=== PATIENT | female | born 1970 | race Caucasian/White ===

== ENCOUNTER 2022-01-14 17:40 | Inpatient (IN) | payer BC ==
[~2022-01-14] VITALS: Ht 167.6 cm; Wt 61.3 kg
[~2022-01-14 17:40] MED LIST: CALC-838 PO; LAMO200T2 PO; ZOLP5TAB2 PO
[2022-01-14] MEDS ORDERED: SERT100T12 PO (17:55)
[2022-01-14] MEDS ORDERED: GABA300C PO (17:55)
--- NOTE | 2022-01-14 17:55 | NUR ---
BOO RA39 "Was walking- felt like she was going to have a seizure- sat on pavement. Bystanders report focal seizure. Given 5Versed on arrival BS- 156. PLACE ON BED, BREATHING SPONTANEOUSLY SATURATING AT 98% RA, RESPONDING TO VERBAL STIMULI- IM TIRED VERBALIZED.
--- NOTE | 2022-01-14 17:56 | NUR ---
AT BED SIDE
[2022-01-14] MEDS ORDERED: LEVETIRACETAM (500MG) 500 MG in IV NS 0.9% 100 ML IV SCH (18:00)
[2022-01-14] MEDS ORDERED: IV NS 0.9% 1,000 ML BAG IV ONE (18:00)
--- NOTE | 2022-01-14 18:10 | NUR ---
X-RAY TECH AT BED SIDE
--- NOTE | 2022-01-14 18:25 | NUR ---
SPECIAL MAKEUP FX ARTIST INSTRUCTOR. AT BED SIDE FOR BLOOD WORKS
[2022-01-14] MEDS ORDERED: MORPHINE SULFATE INJ 4 MG/ML DISP.SYRIN ONE (18:59)
[2022-01-14] MEDS ORDERED: MORPHINE SULFATE INJ 2 MG/ML DISP.SYRIN IV ONE (19:00)
--- NOTE | 2022-01-14 19:11 | NUR ---
pt to ct via [facility]
--- NOTE | 2022-01-14 19:15 | NUR ---
PATIENT WENT FOR CT HEAD VIA [facility]
[2022-01-14 19:16] LABS: CALCIUM, SERUM 8.5 mg/dL (8.5-10.1); CARBON DIOXIDE 29 mmol/L (21-32); CHLORIDE 104 mmol/L (98-107); CREATININE 0.9 mg/dL (0.6-1.3); GLUCOSE 119 mg/dL (74-106); POTASSIUM 3.7 mmol/L (3.5-5.1); SODIUM SERUM 140 mmol/L (136-145); UREA NITROGEN, BLOOD 23 mg/dL (7-18)
[2022-01-14 19:23] LABS: ALANINE AMINOTRANSFERASE 25 U/L (12-78); ALBUMIN 3.7 g/dL (3.4-5.0); ALKALINE PHOSPHATASE 101 U/L (46-116); ASPARTATE AMINOTRANSFERASE 18 U/L (15-37); BILIRUBIN,DIRECT 0.1 mg/dL (0.0-0.2); BILIRUBIN,TOTAL 0.2 mg/dL (0.2-1.0); TOTAL PROTEIN, SERUM 7.3 g/dL (6.4-8.2)
[2022-01-14 19:24] LABS: ALCOHOL, BLOOD < 3 mg/dL (0-0)
[2022-01-14 20:15] LABS: BASOPHILS % (AUTO) 0.3 % (0.0-2.0); EOSINOPHILS % (AUTO) 2.3 % (0.0-6.0); HEMATOCRIT 36 % (33-45); HEMOGLOBIN 11.7 g/dL (11.5-14.8); LYMPHOCYTES # (AUTO) 1.3 K/uL (0.8-4.8); LYMPHOCYTES % (AUTO) 15.5 % (20.0-44.0); MEAN CORPUSCULAR HGB CONC 33 g/dl (31.0-36.0); MEAN CORPUSCULAR VOLUME 85 fL (82-100); MONOCYTES # (AUTO) 0.5 K/uL (0.1-1.30); MONOCYTES % (AUTO) 5.8 % (2.0-12.0); NEUTROPHILS # (AUTO) 6.3 K/uL (1.8-8.9); NEUTROPHILS % (AUTO) 76.1 % (43.0-81.0); PLATELET COUNT (AUTO) 322 K/uL (150-450); RED BLOOD CELL COUNT(AUTO) 4.18 MIL/uL (4.0-5.2); WHITE BLOOD COUNT (AUTO) 8.2 K/uL (4.3-11.0)
--- NOTE | 2022-01-14 20:27 | NUR ---
INSERTED F/C 16FR PATENT AND INTACT. URINE AND COVID ANTIGEN SWAB COLLECTED AND SENT TO LAB
--- NOTE | 2022-01-14 20:30 | NUR ---
EPIC PAGED PER DR THOMPSON.
[2022-01-14] MEDS ORDERED: ACETAMINOPHEN 325 MG TABLET PO PRN (21:00)
[2022-01-14] MEDS ORDERED: Z GUARD REMEDY 4 OZ OINT TP PRN (21:00)
[2022-01-14] MEDS ORDERED: ONDANSETRON HCL/PF 4 MG/2 ML VIAL IVP PRN (21:00)
[2022-01-14] MEDS ORDERED: LORAZEPAM INJ 2 MG/ML VIAL IV PRN (21:00)
[2022-01-14] MEDS ORDERED: LEVETIRACETAM (500MG) 500 MG in IV NS 0.9% 100 ML IV ONE (21:00)
--- NOTE | 2022-01-14 22:47 | NUR ---
tele [phone]
--- NOTE | 2022-01-14 22:53 | NUR ---
REPORT GIVEN TO WILLIE Richardson RN FOR NINA.
--- NOTE | 2022-01-14 23:00 | NUR ---
PT SEEN BY HOSPITALIST HERNANDEZ LEES
[2022-01-14 23:30] VITALS: BP 121/69
--- NOTE | 2022-01-14 23:32 | NUR ---
TREAD CUTTERELECTRONIC WARFARE OPERATOR NOTES ADMITTED THIS PATIENT FROM ER VIA [facility]. PATIENT IS AWAKE, ALERT AND ORIENTED X4. BREATHING IS EVEN AND NONLABORED. WITH OXYGEN INHALATION AT 2LPM VIA NASAL CANNULA; TOLERATING WELL. WITH IV ACCESS ON RIGHT HAND GAUGE #20; PATENT, INTACT AND SALINE LOCKED. VS TAKEN AND RECORDED FOLLOWS: TEMP-97.7, IL-80, RR-20, BP-112/69 MMHG, PULSE OXIMETER O2 SATURATION 97%. SKIN ASSESSMENT DONE; PICTURES TAKEN AND PLACED ON CHART. WITH COTO CATHETER ATTACHED TO UROBAG DRAINING TO YELLOW URINE OUTPUT. ORIENTATION TO ROOM AND UNIT DONE. ABLE TO MAKE NEEDS KNOWN. COMPLAINED OF PAIN ON HER RIGHT HIP WITH A SCALE 0F 9/10. SAFETY MEASURES IMPLEMENTED: PADDED SIDE RAILS, CALL LIGHT AND TABLE WITHIN EASY REACH, SIDE RAILS UP X2, BED IN LOWEST LOCKED POSITION. WILL CONTINUE TO MONITOR
--- NOTE | 2022-01-14 23:41 | NUR ---
PT TRANSFERRED TO 3W VIA ACLS PROTOCOL IN STABLE CONDITION. ALL BELONGINGS WITH PT. PT TOLERATED TRANSFER WELL.
[2022-01-15] MEDS: MORPHINE SULFATE INJ 2 MG/ML DISP.SYRIN IV PRN ×3 (00:02→12:14)
--- NOTE | 2022-01-15 00:05 | NUR ---
CLEARANCE COORDINATOR NOTES PRN MORPHINE 0.5 ML GIVEN VIA IV ORDERED.
[2022-01-15] MEDS: IV D5/0.45 NACL 1,000 ML IV PRN (00:32)
[2022-01-15 02:56] LABS: BILIRUBIN,URINE NEGATIVE (NEGATIVE); COLOR,URINE YELLOW (YELLOW); LEUKOCYTE ESTERASE ,URINE TRACE (NEGATIVE); NITRITE, URINE POSITIVE (NEGATIVE); PH,URINE 6.5 (5.0-8.0); PROTEIN,URINE NEGATIVE (NEGATIVE); UGLUCOSE NEGATIVE (NEGATIVE); UROBILINOGEN,URINE 0.2 EU/dL (0.2)
[2022-01-15 04:00] VITALS: BP 132/72
[2022-01-15 04:15] VITALS: BP 132/72
[2022-01-15] MEDS: LEVETIRACETAM (500MG) 500 MG in IV NS 0.9% 100 ML IV SCH ×2 (06:00→19:50)
[2022-01-15 06:22] LABS: BASOPHILS % (AUTO) 0.1 % (0.0-2.0); EOSINOPHILS % (AUTO) 0.1 % (0.0-6.0); HEMATOCRIT 34 % (33-45); HEMOGLOBIN 11.5 g/dL (11.5-14.8); LYMPHOCYTES # (AUTO) 1.1 K/uL (0.8-4.8); LYMPHOCYTES % (AUTO) 11.1 % (20.0-44.0); MEAN CORPUSCULAR HGB CONC 34 g/dl (31.0-36.0); MEAN CORPUSCULAR VOLUME 83 fL (82-100); MONOCYTES # (AUTO) 0.7 K/uL (0.1-1.30); MONOCYTES % (AUTO) 6.7 % (2.0-12.0); NEUTROPHILS # (AUTO) 8.3 K/uL (1.8-8.9); PLATELET COUNT (AUTO) 306 K/uL (150-450); RED BLOOD CELL COUNT(AUTO) 4.11 MIL/uL (4.0-5.2); WHITE BLOOD COUNT (AUTO) 10.2 K/uL (4.3-11.0)
[2022-01-15 06:52] LABS: CREATININE 0.6 mg/dL (0.6-1.3); MAGNESIUM 2.2 mg/dL (1.8-2.4); PHOSPHORUS 2.4 mg/dL (2.5-4.9); POTASSIUM 3.8 mmol/L (3.5-5.1)
--- NOTE | 2022-01-15 07:00 | NUR ---
BILL OF LADING CLERK CLOSING NOTES PATIENT IN BED; AWAKE, ALERT AND ORIENTED X4. BREATHING EVENLY AND NONLABORED. IN NO ACUTE DISTRESS NOTED. ON ROOM AIR; TOLERATING WELL. NEEDS ATTENDED TO. SAFETY PRECAUTIONS IN PLACED. ENDORSED TO MORNING SHIFT FOR CONTINUITY OF CARE.
[2022-01-15] MEDS ORDERED: GABA300C PO (07:18)
--- NOTE | 2022-01-15 07:20 | NUR ---
WIND TURBINE PERFORMANCE ENGINEER OPENING NOTES PATIENT IN BED; AWAKE, A/O X4. ON RA WITH EVEN CHEST EXPANSIONS AND UNLABORED BREATHING. NO S/SX OF DISTRESS NOTED AT THIS TIME. PATIENT TO BE SEEN BY WOUND CARE NURSE AND ORTHO CONSULTATION. PATIENT WELL AWARE OF PLAN FOR THE DAY. SAFETY AND SEIZURE PRECAUTIONS IN PLACE. WILL CONTINUE PLAN OF CARE
--- NOTE | 2022-01-15 07:39 | NUR ---
BINGO CHECKER NOTES LEVETIRACETAM 500 MG NOT AVAILABLE IN THE UNIT.
[2022-01-15 08:00] VITALS: BP 111/60
--- NOTE | 2022-01-15 08:24 | NUR ---
WOUND CARE CONSULT: PT PRESENTS WITH DRY ABRASIONS TO RT ELBOW AND RT KNEE, PRESENT ON ADMISSION. PT REFUSED TO TURN FOR FULL SKIN ASSESSMENT. COTO CATH NOTED. RECOMMENDATIONS MADE FOR SKIN PROTECTION. DISCUSSED WITH NURSING STAFF. MD IN AGREEMENT WITH PLAN OF CARE.
[2022-01-15 09:07] LABS: BACTERIA,URINE Many /HPF (None Seen); SQUAMOUS EPITHELIAL CELL,UR None Seen /HPF (None Seen)
[2022-01-15] MEDS: GABAPENTIN 300 MG CAPSULE PO SCH ×3 (09:37→18:00)
[2022-01-15] MEDS: LamoTRIgine 100 MG TABLET PO SCH (09:37)
[2022-01-15] MEDS: SERTRALINE HCL 50 MG TABLET PO SCH (09:37)
[2022-01-15] MEDS: PANTOPRAZOLE 40 MG VIAL IV SCH (09:38)
[2022-01-15] MEDS ORDERED: Sodium Phosphate 30 MMOL in IV NS 0.9% 250 ML IV SCH (11:00)
--- NOTE | 2022-01-15 12:48 | NUR ---
RN NOTES PATIENT TRANSFERRED DOWN VIA BED FOR CT
[2022-01-15] MEDS ORDERED: ANESTHESIA TRAY IN PYXIS 1 EA TRAY MC ONE (12:59)
[2022-01-15] MEDS ORDERED: BUPIVACAINE 0.5 % PF 150 MG/30 ML VIAL ONE (13:00)
[2022-01-15] MEDS ORDERED: POLYMYXIN B SULFATE 500,000 UNITS ONE (13:00)
[2022-01-15] MEDS ORDERED: SERT100T PO (13:53)
--- NOTE | 2022-01-15 14:36 | NUR ---
RN NOTES PATIENT PICKED UP FOR SURGERY. TRANSFERRED DOWN TO OR VIA BED ACCOMPANIED BY TWO TECHS. ALL CONSENTS PROVIDED.
[2022-01-15] MEDS ORDERED: MIDAZOLAM HCL 2 MG/2ML VIAL ONE (14:51)
[2022-01-15] MEDS ORDERED: FENTANYL PF 100MCG/2ML AMPUL ONE (14:51)
[2022-01-15] MEDS ORDERED: ROCURONIUM BROMIDE 50 MG/5 ML ONE (14:52)
[2022-01-15] MEDS ORDERED: PROPOFOL 20 ML IV ONE (14:52)
[2022-01-15] MEDS ORDERED: VANCOMYCIN 1 GM in IV D5W 250ml IV ONE (15:00)
[2022-01-15] MEDS ORDERED: TRANEXAMIC ACID 1,000 MG in IV NS 0.9% 100 ML IV ONE (15:00)
[2022-01-15] MEDS ORDERED: CEFAZOLIN 2 GM in IV D5W 100 ML IV ONE (15:00)
[2022-01-15] MEDS ORDERED: LIDOCAINE HCL/MPF 1% 30 ML VIAL IJ ONE (15:02)
[2022-01-15] MEDS ORDERED: SEVOFLURANE 250 ML BOTTLE IH ONE (15:02)
[2022-01-15] MEDS ORDERED: BUPIVACAINE MPF W/EPI 0.25% 30 ML VIAL ONE (15:04)
[2022-01-15] MEDS ORDERED: LIDOCAINE 1%-EPI 1:100,000 20 ML VIAL ONE (15:04)
[2022-01-15] MEDS ORDERED: SODIUM CHLORIDE IRRIG IR ONE (17:00)
[2022-01-15] MEDS ORDERED: TRANEXAMIC ACID IR ONE (17:00)
[2022-01-15 17:06] LABS: THYROID STIMULATING HORMONE 1.517 uIU/mL (0.358-3.74)
--- NOTE | 2022-01-15 18:00 | NUR ---
RN NOTES PATIENT OFF UNIT IN SURGERY. MEDICATIONS NOT BE GIVEN AT THIS TIME.
[2022-01-15 18:45] VITALS: BP 128/73
--- NOTE | 2022-01-15 18:45 | NUR ---
RN NOTES PATIENT RETURNED BACK TO UNIT FROM OR. VSS. PATIENT AWAKE, A/O X4. ALL ORDERS CARRIED OUT AND FAXED. DVT PUMPS IN PLACE. SAFETY AND SEIZURE PRECAUTIONS IN PLACE. WILL CONTINUE TO MONITOR.
--- NOTE | 2022-01-15 19:30 | NUR ---
RN OPENING NOTES RECEIVED PT IN BED, AWAKE, EATING, S/P R HIP ORIF WITH DR. HARDEN. AOx4, ABLE TO MAKE NEEDS KNOWN. ON 2LP NC AND TOLERATING WELL. NO SOB NOTED. NO S/SX OF RESPIRATORY DISTRESS NOTED. TELE MONITOR DETECTS SINUS RHYTHM WITH RATE OF 80. IV ACCESS IN LHAND #20G AND R HAND #20 RUNNING D5 1/2 NS @ 50 ML/HR. SAFETY PRECAUTIONS IN PLACE: BED IN LOWEST, LOCKED POSITION, SIDERAILS UPx2, AND BRAKES ON. TABLE AND CALL LIGHT WITHIN REACH. WILL CONTINUE TO MONITOR.
--- NOTE | 2022-01-15 19:31 | NUR ---
RN CLOSING NOTES ENDORSED TO THE FLAT SHEET MAKER NURSE FOR NINA
--- NOTE | 2022-01-15 19:50 | NUR ---
ADMINISTERED KEPPRA LATE BECAUSE PATIENT WAS NOT ON UNIT.
[2022-01-15 20:12] VITALS: BP 119/70
[2022-01-15] MEDS: ZOLPIDEM TARTRATE 5 MG TABLET PO PRN (22:33)
[2022-01-15] MEDS: CEFAZOLIN 2 GM in IV D5W 100 ML IV SCH (22:33)
--- NOTE | 2022-01-15 22:33 | NUR ---
PT REQUESTED ZIA FOR SLEEP. WILL CONTINUE TO MONITOR.
[2022-01-16 00:13] VITALS: BP 99/50
[2022-01-16] MEDS: IV D5/0.45 NACL 1,000 ML IV PRN (02:40)
[2022-01-16] MEDS ORDERED: VANCOMYCIN 1 GM in IV D5W 250ml IV ONE (03:00)
[2022-01-16 04:30] VITALS: BP 115/62
[2022-01-16] MEDS: LEVETIRACETAM (500MG) 500 MG in IV NS 0.9% 100 ML IV SCH (05:06)
[2022-01-16] MEDS: HYDROCODONE/APAP 5/325MG TABLET PO PRN ×2 (05:13→14:04)
--- NOTE | 2022-01-16 05:13 | NUR ---
ADMINISTERED NORCO FOR PAIN PER MD ORDER. VS WNL. WILL CONTINUE TO MONITOR.
[2022-01-16 06:43] LABS: BASOPHILS % (AUTO) 0.1 % (0.0-2.0); EOSINOPHILS % (AUTO) 0.2 % (0.0-6.0); HEMATOCRIT 33 % (33-45); HEMOGLOBIN 10.9 g/dL (11.5-14.8); LYMPHOCYTES # (AUTO) 0.9 K/uL (0.8-4.8); LYMPHOCYTES % (AUTO) 10.9 % (20.0-44.0); MEAN CORPUSCULAR HGB CONC 34 g/dl (31.0-36.0); MEAN CORPUSCULAR VOLUME 85 fL (82-100); MONOCYTES # (AUTO) 0.9 K/uL (0.1-1.30); MONOCYTES % (AUTO) 10.6 % (2.0-12.0); NEUTROPHILS # (AUTO) 6.5 K/uL (1.8-8.9); NEUTROPHILS % (AUTO) 78.2 % (43.0-81.0); PLATELET COUNT (AUTO) 279 K/uL (150-450); RED BLOOD CELL COUNT(AUTO) 3.84 MIL/uL (4.0-5.2); WHITE BLOOD COUNT (AUTO) 8.3 K/uL (4.3-11.0)
--- NOTE | 2022-01-16 06:56 | NUR ---
RN CLOSING NOTES PT IN BED, ASLEEP, AWAKENS TO VERBAL STIMULI. AOx4, ABLE TO MAKE NEEDS KNOWN. ON 2LPM VIA NC AND TOLERATING WELL. NO SOB NOTED. NO S/SX OF RESPIRATORY DISTRESS NOTED. TELE MONITOR DETECTS SINUS RHYTHM WITH RATE OF 80. IV ACCESS IN LHAND #20G AND R HAND #20 RUNNING D5 1/2 NS @ 50 ML/HR. ALL ORDERS CARRIED OUT. ALL NEEDS MET. PT KEPT CLEAN AND DRY. TREATED PAIN ONCE DURING SHIFT. SAFETY PRECAUTIONS IN PLACE: BED IN LOWEST, LOCKED POSITION, SIDERAILS UPx2, AND BRAKES ON. TABLE AND CALL LIGHT WITHIN REACH. WILL ENDORSE TO ONCOMING SHIFT FOR NINA.
[2022-01-16 07:01] LABS: CALCIUM, SERUM 7.5 mg/dL (8.5-10.1); CREATININE 0.8 mg/dL (0.6-1.3); POTASSIUM 3.2 mmol/L (3.5-5.1)
[2022-01-16 08:00] VITALS: BP 115/58
--- NOTE | 2022-01-16 08:30 | NUR ---
RECEIVED PT. IN AM ALERT AND ORIENTED X4.NO COMPLAINTS OFFERED,IV INFUSING,RT. HIP DRESSING DRY AND INTACT.F/C TO GRAVITY DRAINAGE WITH GOOD OUTPUT.
[2022-01-16] MEDS ORDERED: POTASSIUM CHLORIDE 20 MEQ TAB.PRT.SR PO ONE (09:00)
[2022-01-16] MEDS: PANTOPRAZOLE 40 MG VIAL IV SCH ×2 (09:16→09:48)
[2022-01-16] MEDS: CEFAZOLIN 2 GM in IV D5W 100 ML IV SCH ×2 (09:27→18:52)
[2022-01-16] MEDS: GABAPENTIN 300 MG CAPSULE PO SCH ×3 (09:48→17:51)
[2022-01-16] MEDS: SERTRALINE HCL 50 MG TABLET PO SCH (09:48)
[2022-01-16] MEDS: LamoTRIgine 100 MG TABLET PO SCH ×2 (09:49→22:20)
[2022-01-16] MEDS ORDERED: CEPHALEXIN MONOHYDRATE 250 MG CAPSULE PO SCH (12:00)
[2022-01-16] MEDS ORDERED: CEFAZOLIN 1 GM in IV D5W 50 ML IV SCH (13:00)
[2022-01-16] MEDS ORDERED: MORPHINE SULFATE INJ 2 MG/ML DISP.SYRIN IV PRN (13:00)
[2022-01-16] MEDS: CALCIUM CARB 600MG /VIT D 1 EACH TABLET PO SCH ×2 (13:51→17:51)
[2022-01-16] MEDS: ASCORBIC ACID 500 MG TABLET PO SCH ×2 (13:51→17:51)
[2022-01-16] MEDS: ZINC SULFATE 220 MG CAPSULE PO SCH (13:51)
[2022-01-16] MEDS: ENOXAPARIN SODIUM 40 MG/0.4 ML DISP.SYRIN SQ SCH (13:53)
[2022-01-16] MEDS: MULTIVITAMINS,THERAGRAN 1 UDTAB TABLET PO SCH (13:56)
--- NOTE | 2022-01-16 14:04 | NUR ---
med x 1 for post op pain with norco.
[2022-01-16] MEDS: ENSURE ENLIVE CHOC 237 ML CAN PO SCH ×2 (14:06→17:50)
[2022-01-16 16:00] VITALS: BP 125/71
--- NOTE | 2022-01-16 17:55 | NUR ---
[facility] calling to speak with pt.ascertained cell # at bedside .
[2022-01-16 20:00] VITALS: BP 111/63
[2022-01-16] MEDS: LEVETIRACETAM (250 MG) 250 MG TABLET PO SCH (20:42)
[2022-01-16 23:43] VITALS: BP 108/63
[2022-01-17] MEDS: IV D5/0.45 NACL 1,000 ML IV PRN (01:56)
[2022-01-17] MEDS: CEFAZOLIN 2 GM in IV D5W 100 ML IV SCH ×3 (02:53→18:33)
[2022-01-17 04:00] VITALS: BP 112/69
[2022-01-17] MEDS ORDERED: CEFAZOLIN 2 GM in IV D5W 100 ML IV SCH (05:00)
[2022-01-17 06:42] LABS: BASOPHILS % (AUTO) 0.2 % (0.0-2.0); EOSINOPHILS % (AUTO) 1.1 % (0.0-6.0); HEMATOCRIT 32 % (33-45); HEMOGLOBIN 10.6 g/dL (11.5-14.8); LYMPHOCYTES # (AUTO) 1.2 K/uL (0.8-4.8); LYMPHOCYTES % (AUTO) 14.4 % (20.0-44.0); MEAN CORPUSCULAR HGB CONC 33 g/dl (31.0-36.0); MEAN CORPUSCULAR VOLUME 85 fL (82-100); MONOCYTES # (AUTO) 0.7 K/uL (0.1-1.30); MONOCYTES % (AUTO) 8.7 % (2.0-12.0); NEUTROPHILS # (AUTO) 6.1 K/uL (1.8-8.9); NEUTROPHILS % (AUTO) 75.6 % (43.0-81.0); PLATELET COUNT (AUTO) 270 K/uL (150-450); RED BLOOD CELL COUNT(AUTO) 3.77 MIL/uL (4.0-5.2); WHITE BLOOD COUNT (AUTO) 8.1 K/uL (4.3-11.0)
[2022-01-17 07:05] LABS: CALCIUM, SERUM 8.4 mg/dL (8.5-10.1); CREATININE 0.7 mg/dL (0.6-1.3); MAGNESIUM 2.2 mg/dL (1.8-2.4); PHOSPHORUS 2.1 mg/dL (2.5-4.9)
--- NOTE | 2022-01-17 07:18 | NUR ---
SALESPERSON [place] AND GLASSWARE OPENING NOTES RECEIVED PT AWAKE IN BED IN NO ACUTE SIGNS OF DISTRESS. A/0 x4, ABLE TO MAKE NEEDS KNOWN, DENIES PAIN OR DISCOMFORTS AT THIS TIME. ON ROOM AIR, TOLERATING WELL, BREATHING EVEN AND UNLABORED. ON TELE- MONITOR WITH CURRENT READING OF NSR, HR 90, NO C/O CARDIAC DISTRESS VOICED AT THIS TIME. PT WITH IV ACCESSES IN LHAND #20G AND R HAND #20, IVF OF D5 1/2 NS @ 50 ML/HR INFUSING TO L HAND. PT WITH COTO CATHETER DRAINING CLEAR YELLOW URINE VIA GRAVITY. SEIZURE AND SAFETY PRECAUTIONS IN PLACE: BED IN LOWEST, LOCKED POSITION, SIDE-RAILS UP x2 AND PADDED, TRAY TABLE AND CALL LIGHT WITHIN REACH. WILL CONTINUE TO MONITOR.
--- NOTE | 2022-01-17 07:39 | NUR ---
END OF SHIFT REPORT Patient is Alert Oriented x4. Sinus rhythm in the Tele monitor HR 93, on room air. Right hip incision dressing clean and dry, no c/o pain. IV fluids infusing, on IV abx. Afebrile. Alcaraz catheter intact, urine output 1200ml. No BM this shift. WBAT per Ortho. Fall precaution maintained. Plan DC to ARU vs SNF. Care endorsed to DEBBIE Doss.
[2022-01-17 08:00] VITALS: BP 112/65
[2022-01-17] MEDS: ENSURE ENLIVE CHOC 237 ML CAN PO SCH ×3 (08:37→17:03)
[2022-01-17] MEDS ORDERED: LEVETIRACETAM (250 MG) 250 MG TABLET PO SCH (09:00)
[2022-01-17] MEDS: MULTIVITAMINS,THERAGRAN 1 UDTAB TABLET PO SCH (09:12)
[2022-01-17] MEDS: SERTRALINE HCL 50 MG TABLET PO SCH (09:12)
[2022-01-17] MEDS: PANTOPRAZOLE 40 MG TABLET.DR PO SCH (09:12)
[2022-01-17] MEDS: LamoTRIgine 100 MG TABLET PO SCH ×2 (09:12→21:14)
[2022-01-17] MEDS: ASCORBIC ACID 500 MG TABLET PO SCH ×2 (09:12→16:33)
[2022-01-17] MEDS: CALCIUM CARB 600MG /VIT D 1 EACH TABLET PO SCH ×3 (09:12→16:33)
[2022-01-17] MEDS: GABAPENTIN 300 MG CAPSULE PO SCH ×3 (09:12→16:33)
[2022-01-17] MEDS: ZINC SULFATE 220 MG CAPSULE PO SCH (09:12)
[2022-01-17] MEDS: LEVETIRACETAM (250 MG) 250 MG TABLET PO SCH ×2 (09:12→21:14)
[2022-01-17] MEDS: HYDROCODONE/APAP 5/325MG TABLET PO PRN ×2 (09:22→18:41)
[2022-01-17] MEDS: ENOXAPARIN SODIUM 40 MG/0.4 ML DISP.SYRIN SQ SCH (12:27)
[2022-01-17 16:00] VITALS: BP 116/73
[2022-01-17] MEDS ORDERED: K PHOS NEUTRAL 250 MG TABLET PO ONE (16:00)
--- NOTE | 2022-01-17 18:44 | NUR ---
MS RN CLOSING NOTES: PATIENT IN BED RESTING IN BED,AWAKE,ALERT AND ORIENTED X4 AND ABLE TO VERBALIZED NEEDS. NO SOB/NO CARDIAC DISTRESS ON ROOM AIR AND TOLERATING WELL. COMPLAINED RIGHT HIP PAIN AND PAIN PILLS GIVEN. WITH IV PERIPHERAL ACCESS ON LEFT HAND G#20 PATENT AND INTACT WITH D5 1/2 NS @50 ML/HR INFUSING WELL. NOTED WITH DRY DRESSING ON HER RIGHT THIGH/HIP NO S/S OF SWELLING OR DISCHARGES. NOTED WITH FC INTACT AND DRAINING CLEAR YELLOW COLORED URINE VIA GRAVITY. MAINTAINED SAFETY PRECAUTIONARY MEASURES: BED LOCKED AND IN LOWEST POSITION. SIDE RAILS UP X2,WITH BED ALARM. CALL LIGHT WITHIN EASY REACH FOR HELP/ASSISTANCE. ENDORSED TO NEXT SHIFT FOR NINA.
--- NOTE | 2022-01-17 19:40 | NUR ---
MS RN OPENING NOTE RECEIVED PT AWAKE IN BED. A/O X4 AND ABLE TO MAKE NEEDS KNOWN. PT STABLE ON ROOM AIR. NO SOB OR S/S OF RESPIRATORY DISTRESS. BREATHING EVEN AND UNLABORED. IV ACCESS ON LFA 20 GAUGE, INTACT AND PATENT, RUNNING D5 1/2 NS @50 ML/HR INFUSING WELL. NOTED WITH DRY DRESSING ON HER RIGHT THIGH/HIP NO S/S OF SWELLING OR DISCHARGE. COTO CATH IN PLACE DRAINING CLEAR YELLOW COLORED URINE. SAFETY PRECAUTIONS IN PLACE. BED IN LOWEST LOCKED POSITION, HOB ELEVATED, SIDE RAILS UP X2, AND CALL LIGHT AND TABLE WITHIN REACH. ALL NEEDS MET AT THIS TIME.
[2022-01-17 20:00] VITALS: BP 112/65
[2022-01-17] MEDS: ZOLPIDEM TARTRATE 5 MG TABLET PO PRN (21:15)
--- NOTE | 2022-01-17 21:15 | NUR ---
RN NOTE PT REQUESTED SLEEPING PILL. ADMINISTERED AMBIEN 5 MG PER PATIENT REQUEST ORDERED. MADE COMFORTABLE IN BED. ALL NEEDS MET AT THIS TIME.
[2022-01-18] MEDS: IV D5/0.45 NACL 1,000 ML IV PRN (02:29)
[2022-01-18] MEDS: CEFAZOLIN 2 GM in IV D5W 100 ML IV SCH ×3 (02:29→18:57)
--- NOTE | 2022-01-18 06:33 | NUR ---
MS RN CLOSING NOTE PT AWAKE IN BED. A/O X4 AND ABLE TO MAKE NEEDS KNOWN. PT STABLE ON ROOM AIR. NO SOB OR S/S OF RESPIRATORY DISTRESS. BREATHING EVEN AND UNLABORED. IV ACCESS ON LFA 20 GAUGE, INTACT AND PATENT, RUNNING D5 1/2 NS @50 ML/HR INFUSING WELL. NOTED WITH DRY DRESSING ON HER RIGHT THIGH/HIP NO S/S OF SWELLING OR DISCHARGE. COTO CATH IN PLACE DRAINING CLEAR YELLOW COLORED URINE. ALL DUE MEDS GIVEN ORDERED. SAFETY PRECAUTIONS IN PLACE AT ALL TIMES. BED IN LOWEST LOCKED POSITION, HOB ELEVATED, SIDE RAILS UP X2, AND CALL LIGHT AND TABLE WITHIN REACH. ALL NEEDS MET AT THIS TIME AND WILL ENDORSE TO ONCOMING NURSE FOR NINA.
[2022-01-18 07:13] LABS: CALCIUM, SERUM 8.4 mg/dL (8.5-10.1); CREATININE 0.7 mg/dL (0.6-1.3); PHOSPHORUS 2.6 mg/dL (2.5-4.9); POTASSIUM 3.4 mmol/L (3.5-5.1)
--- NOTE | 2022-01-18 07:34 | NUR ---
MS RN OPENING NOTES: RECEIVED PATIENT IN BED ASLEEP, EASILY AROUSED BY STIMULI. A/OX4 AND ABLE TO VERBALIZED NEEDS. NO SOB/NO CARDIAC DISTRESS NOTED, ON ROOM AIR AND TOLERATING WELL. IV ACCESS ON LEFT FOREARM G#22 RUNNING D5 1/2 NS @50ML/HR. NOTED WITH DRY DRESSING ON RIGHT THIGH INTACT WITH NO S/S OF INFECTION. WITH FC NOTED WITH CLEAR YELLOW COLORED URINE INTACT AND DRAINING WELL. SAFETY PRECAUTIONARY MEASURES MAINTAINED: BED IN LOWEST POSITION, LOCKED,SIDE RAILS UP X2. CALL LIGHT IN EASY REACH FOR HELP.
[2022-01-18 08:00] VITALS: BP 108/64
[2022-01-18] MEDS: LEVETIRACETAM (250 MG) 250 MG TABLET PO SCH ×2 (08:10→22:04)
[2022-01-18] MEDS: PANTOPRAZOLE 40 MG TABLET.DR PO SCH (08:10)
[2022-01-18] MEDS: ZINC SULFATE 220 MG CAPSULE PO SCH (08:11)
[2022-01-18] MEDS: CALCIUM CARB 600MG /VIT D 1 EACH TABLET PO SCH ×3 (08:11→16:12)
[2022-01-18] MEDS: ASCORBIC ACID 500 MG TABLET PO SCH ×2 (08:11→16:12)
[2022-01-18] MEDS: MULTIVITAMINS,THERAGRAN 1 UDTAB TABLET PO SCH (08:11)
[2022-01-18] MEDS: SERTRALINE HCL 50 MG TABLET PO SCH (08:11)
[2022-01-18] MEDS: GABAPENTIN 300 MG CAPSULE PO SCH ×3 (08:11→16:12)
[2022-01-18] MEDS: LamoTRIgine 100 MG TABLET PO SCH ×2 (08:11→22:04)
[2022-01-18] MEDS: HYDROCODONE/APAP 5/325MG TABLET PO PRN (08:18)
[2022-01-18] MEDS: ENSURE ENLIVE CHOC 237 ML CAN PO SCH ×3 (08:19→17:05)
[2022-01-18] MEDS ORDERED: POTASSIUM CHLORIDE 20 MEQ TAB.PRT.SR PO ONE (10:30)
--- NOTE | 2022-01-18 11:30 | NUR ---
RN NOTES SEEN BY PT AND ABLE TO PARTICIPATE.
[2022-01-18] MEDS: ENOXAPARIN SODIUM 40 MG/0.4 ML DISP.SYRIN SQ SCH (11:56)
[2022-01-18 16:00] VITALS: BP 108/68
--- NOTE | 2022-01-18 18:48 | NUR ---
MS RN CLOSING NOTES: PATIENT IN BED WATCHING TELEVISION AT THIS TIME. ALERT AND ORIENTED X 4 AND ABLE TO VERBALIZED NEEDS. NO SOB/NO CARDIAC DISTRESS NOTED, BREATHING NORMAL AND UNLABORED, ON ROOM AIR AND TOLERATING WELL. IV ON LEFT FOREARM G#22 RUNNING D51/2 NS @50ML/HR. NOTED WITH DRY DRESSING ON RIGHT THIGH INTACT WITH NO S/S OF INFECTION. WITH FC NOTED WITH CLEAR YELLOW COLORED URINE INTACT AND DRAINING WELL. SAFETY PRECAUTIONARY MEASURES MAINTAINED: BED IN LOWEST POSITION, LOCKED,SIDE RAILS UP X2. CALL LIGHT IN EASY REACH FOR HELP. ENDORSED TO NEXT SHIFT FOR CONTINUITY OF CARE.
--- NOTE | 2022-01-18 19:52 | NUR ---
RN NOTE PATIENT RECEIVED AWAKE IN BED; PARTNER AT BEDSIDE. A/OX4. NO S/S OF DISTRESS, BREATHING ON RM AIR W/O DIFFICULTY. LFA #22 INTACT AND PATENT W/ D5-1/2NS @50 ML/HR. SAFETY MEASURES IN PLACE: BED AT LOWEST POSITION, LOCKED, RAILS UPX3, CALL HIDALGO WITHIN REACH. WILL CONTINUE TO MONITOR PATIENT.
[2022-01-18 20:00] VITALS: BP 104/57
[2022-01-18] MEDS: ZOLPIDEM TARTRATE 5 MG TABLET PO PRN (22:04)
[2022-01-19] MEDS: CEFAZOLIN 2 GM in IV D5W 100 ML IV SCH ×2 (03:08→12:11)
[2022-01-19] MEDS: IV D5/0.45 NACL 1,000 ML IV PRN (03:17)
--- NOTE | 2022-01-19 07:30 | NUR ---
MS RN OPENING NOTES PATIENT IS AWAKE IN BED. A/OX4. NO S/S OF DISTRESS, BREATHING WELL ON ROOM AIR. NO SIGNS OF DISTRESS AND DISCOMFORT. LFA #22 W/ D5-1/2NS 50ML/HR. SAFETY MEASURES IN PLACE: BED AT LOWEST POSITION, LOCKED, RAILS UP X3, CALL HIDALGO WITHIN REACH. WILL CONTINUE TO MONITOR FOR NINA.
--- NOTE | 2022-01-19 07:45 | NUR ---
RN CLOSING NOTE PATIENT IS AWAKE IN BED. A/OX4. NO S/S OF DISTRESS, BREATHING WELL ON ROOM AIR. LFA #22 W/ D5-1/2NS 50ML/HR. SAFETY MEASURES IN PLACE: BED AT LOWEST POSITION, LOCKED, RAILS UP X3, CALL HIDALGO WITHIN REACH. REPORT ENDORSED TO AND ACKNOWLEDGED BY TESS DAY SHIFT RN, FOR NINA.
[2022-01-19] MEDS: ENSURE ENLIVE CHOC 237 ML CAN PO SCH ×3 (09:36→17:16)
[2022-01-19] MEDS: SERTRALINE HCL 50 MG TABLET PO SCH (09:48)
[2022-01-19] MEDS: LamoTRIgine 100 MG TABLET PO SCH (09:48)
[2022-01-19] MEDS: PANTOPRAZOLE 40 MG TABLET.DR PO SCH (09:48)
[2022-01-19] MEDS: CALCIUM CARB 600MG /VIT D 1 EACH TABLET PO SCH ×3 (09:49→17:37)
[2022-01-19] MEDS: MULTIVITAMINS,THERAGRAN 1 UDTAB TABLET PO SCH (09:49)
[2022-01-19] MEDS: ASCORBIC ACID 500 MG TABLET PO SCH ×2 (09:49→17:37)
[2022-01-19] MEDS: ZINC SULFATE 220 MG CAPSULE PO SCH (09:49)
[2022-01-19] MEDS: LEVETIRACETAM (250 MG) 250 MG TABLET PO SCH (09:49)
[2022-01-19] MEDS: GABAPENTIN 300 MG CAPSULE PO SCH ×3 (09:49→17:37)
[2022-01-19] MEDS ORDERED: ASCO500T21 PO (11:10)
[2022-01-19] MEDS ORDERED: SERT50TA PO (11:10)
[2022-01-19] MEDS ORDERED: Calcium Carb 600MG /Vit D PO (11:10)
[2022-01-19] MEDS ORDERED: PANT40TA49 PO (11:10)
[2022-01-19] MEDS ORDERED: Hydrocodone/Apap 5/325MG PO (11:10)
[2022-01-19] MEDS ORDERED: LAMO100T2 PO (11:10)
[2022-01-19] MEDS: ENOXAPARIN SODIUM 40 MG/0.4 ML DISP.SYRIN SQ SCH (12:06)
--- NOTE | 2022-01-19 18:29 | NUR ---
MS RN CLOSING NOTES PATIENT IS AWAKE IN BED. A/OX4. NO S/S OF DISTRESS, BREATHING WELL ON ROOM AIR. NO SIGNS OF DISTRESS AND DISCOMFORT. LFA #22 W/ D5-1/2NS 50ML/HR. SAFETY MEASURES IN PLACE: BED AT LOWEST POSITION, LOCKED, RAILS UP X3, CALL HIDALGO WITHIN REACH. WILL ENDORSE TO ONCOMING SHIFT FOR NINA.
--- NOTE | 2022-01-19 19:53 | NUR ---
RN MS NOTES PT IN BED, NO COMPLAINT OF PAIN, NOT IN DISTRESS, SEEN BY DR. OVIEDO, DISCHARGE ORDER GIVEN, DISCHARGE AND MEDICATION INSTRUCTIONS PROVIDED TO PT, VERBALIZED UNDERSTANDING, BELONGINGS ACCOUNTED FOR, PT REFUSED KIN ASSESSMENT AND PHOTOS, COTO CATH REMOVED, REPORT GIVEN TO MIRTHA LEWIS AT [facility], PT BEING PICKED UP BY AMBULANCE PERSONNEL AT THIS TIME.
== END 2022-01-19 20:05 | DRG 481 ==
LOC: ER 17:45 → TELE 23:26 → MED 01-17 13:53
PROVIDERS: ADMIT Registered Nurse; ATTEND Internal Medicine
PROC: 0QS606Z Reposition Right Upper Femur with Intramedullary Internal Fixation Device, Open Approach (ICD-10-PCS; principal; 2022-01-15)
DX: S72.141A Displaced intertrochanteric fracture of right femur, initial encounter for closed fracture (principal); N39.0 Urinary tract infection, site not specified; G40.909 Epilepsy, unspecified, not intractable, without status epilepticus; F42.9 Obsessive-compulsive disorder, unspecified; E87.6 Hypokalemia; D72.829 Elevated white blood cell count, unspecified; F32.A Depression, unspecified; Z79.01 Long term (current) use of anticoagulants; Z79.899 Other long term (current) drug therapy; G80.9 Cerebral palsy, unspecified; R79.89 Other specified abnormal findings of blood chemistry; F41.9 Anxiety disorder, unspecified; G47.00 Insomnia, unspecified; G93.89 Other specified disorders of brain; W18.30XA Fall on same level, unspecified, initial encounter; Y92.89 Other specified places as the place of occurrence of the external cause
CPT/HCPCS: 36415; 70450-TC; 71045-TC; 73502; 73552; 73700-TC; 80048-TC; 80076-TC; 80175; 81001; 83735-TC; 84100-TC; 84443-TC; 84702-TC; 84703-TC; 85025-TC; 85730-TC; 87081-TC; 87086-TC; 87186-TC; 97110-TC; 97116-TC; 97530-TC; A4217; A6209; A6253; A9563; C1713; C9113; C9803; G0378; G0480; J0690; J1100; J1650; J1953; J2250; J2270; J2405; J2704; J3010; J3370; J3490; J7030; J7040; J7050; J7060

== ENCOUNTER 2025-07-07 11:16 | Inpatient (IN) | payer BC ==
[~2025-07-07] VITALS: Ht 165.1 cm; Wt 57.6 kg
[~2025-07-07 11:16] MED LIST changes: +ASCO500T21 PO; -CALC-838 PO; +Calcium Carb 600MG /Vit D PO; +GABA300C PO; +Hydrocodone/Apap 5/325MG PO; +LAMO100T2 PO; -LAMO200T2 PO; +PANT40TA49 PO; +SERT50TA PO; -ZOLP5TAB2 PO
[2025-07-07 12:03] LABS: CALCIUM, SERUM 8.3 mg/dL (8.5-10.1); CREATININE 0.6 mg/dL (0.6-1.3); SODIUM SERUM 140.0 mmol/L (136-145); UREA NITROGEN, BLOOD 19.0 mg/dL (7-18)
[2025-07-07 12:08] LABS: CREATINE KINASE, TOTAL 105.0 U/L (26-192)
[2025-07-07 12:10] LABS: ASPARTATE AMINOTRANSFERASE 33.0 U/L (15-37); TOTAL PROTEIN, SERUM 7.1 g/dL (6.4-8.2)
[2025-07-07 12:24] LABS: PLATELET COUNT (AUTO) 512 K/uL (150-450); RED BLOOD CELL COUNT(AUTO) 3.80 MIL/uL (4.0-5.2); RED CELL DISTRIBUTION WIDTH 13.5 % (11.5-15.0); WHITE BLOOD COUNT (AUTO) 10.0 K/uL (4.3-11.0)
[2025-07-07 12:25] LABS: APPEARANCE,URINE SLIGHTLY CLOUDY (CLEAR); BLOOD, URINE 1+ Ery/uL (NEGATIVE); LEUKOCYTE ESTERASE ,URINE TRACE (NEGATIVE); NITRITE, URINE POSITIVE (NEGATIVE); UGLUCOSE NEGATIVE (NEGATIVE)
[2025-07-07 12:43] LABS: ADD URINE CULTURE YES
[2025-07-07] MEDS ORDERED: CEFTRIAXONE 1GM BAG (ER ONLY) 50 ML IV ONE (12:45)
[2025-07-07] MEDS: CEFTRIAXONE 1 G in IV D5W 50 ML IV ONE (12:52)
[2025-07-07] MEDS ORDERED: IOHEXOL-350 100 ML VIAL IV ONE (13:03)
[2025-07-07] MEDS ORDERED: IV NS 0.9% 250 ML IV ONE (13:04)
[2025-07-07] MEDS ORDERED: SERT100T PO (13:11)
[2025-07-07] MEDS ORDERED: LAMO200T52 PO (13:11)
[2025-07-07] MEDS ORDERED: CALC500T88 PO (13:11)
[2025-07-07] MEDS ORDERED: BUSP5TAB3 PO (13:11)
[2025-07-07] MEDS ORDERED: ZOLP6.2539 PO (13:11)
[2025-07-07] MEDS ORDERED: ZOLPIDEM TARTRATE 5 MG TABLET PO PRN (14:30)
[2025-07-07] MEDS ORDERED: ONDANSETRON HCL/PF 4 MG/2 ML VIAL IVP PRN (14:30)
[2025-07-07] MEDS ORDERED: ENOXAPARIN SODIUM 40 MG/0.4 ML DISP.SYRIN SQ ONE (15:37)
[2025-07-07] MEDS ORDERED: GABAPENTIN 300 MG CAPSULE ONE (15:38)
[2025-07-07] MEDS: GABAPENTIN 300 MG CAPSULE PO SCH (15:50)
[2025-07-07] MEDS: ENOXAPARIN SODIUM 40 MG/0.4 ML DISP.SYRIN SQ SCH (15:50)
[2025-07-07] MEDS: IV NS 0.9% 1,000 ML IV PRN (15:57)
[2025-07-07] MEDS: AZITHROMYCIN 500 MG in IV D5W 250 ML IV SCH (16:19)
[2025-07-07 20:00] VITALS: BP 119/63; TEMP 99; O2SAT 98
[2025-07-07] MEDS: CALCIUM CARBONATE (1250) 500 MG TABLET PO SCH (21:13)
[2025-07-08] VITALS: BP 107/60; TEMP 98.4; O2SAT 99
[2025-07-08 04:00] VITALS: BP 97/45; TEMP 99.7; O2SAT 94
[2025-07-08 07:45] LABS: PLATELET COUNT (AUTO) 486 K/uL (150-450); RED BLOOD CELL COUNT(AUTO) 3.51 MIL/uL (4.0-5.2); RED CELL DISTRIBUTION WIDTH 13.5 % (11.5-15.0); WHITE BLOOD COUNT (AUTO) 8.4 K/uL (4.3-11.0)
[2025-07-08 08:00] VITALS: BP 105/61; TEMP 97.8; O2SAT 96
[2025-07-08 08:00] LABS: CALCIUM, SERUM 8.1 mg/dL (8.5-10.1); CREATININE 0.6 mg/dL (0.6-1.3); PHOSPHORUS 3.2 mg/dL (2.5-4.9); SODIUM SERUM 139.0 mmol/L (136-145); UREA NITROGEN, BLOOD 13.0 mg/dL (7-18)
[2025-07-08] MEDS: SERTRALINE HCL 50 MG TABLET PO SCH (09:14)
[2025-07-08 12:00] VITALS: BP 93/51; TEMP 97.5; O2SAT 95
[2025-07-08] MEDS: CEFTRIAXONE 1 G in IV D5W 50 ML IV SCH (13:17)
[2025-07-08 16:00] VITALS: BP 97/56; TEMP 97; O2SAT 96
[2025-07-08 20:00] VITALS: BP 98/59; TEMP 98.1; O2SAT 94
[2025-07-08] MEDS: ACETAMINOPHEN 325 MG TABLET PO PRN (21:21)
[2025-07-09] VITALS: BP 100/65; TEMP 97.9; O2SAT 95
[2025-07-09] MEDS: GUAIFENESIN/D-METHORPHAN HB 5 ML UDC PO PRN (00:30)
[2025-07-09 04:00] VITALS: BP 99/64; TEMP 97.9; O2SAT 95
[2025-07-09 07:31] LABS: PLATELET COUNT (AUTO) 509 K/uL (150-450); RED BLOOD CELL COUNT(AUTO) 3.61 MIL/uL (4.0-5.2); RED CELL DISTRIBUTION WIDTH 13.8 % (11.5-15.0); WHITE BLOOD COUNT (AUTO) 7.7 K/uL (4.3-11.0)
[2025-07-09 07:50] LABS: CALCIUM, SERUM 8.6 mg/dL (8.5-10.1); CREATININE 0.6 mg/dL (0.6-1.3); PHOSPHORUS 4.2 mg/dL (2.5-4.9); SODIUM SERUM 143.0 mmol/L (136-145); UREA NITROGEN, BLOOD 12.0 mg/dL (7-18)
[2025-07-09 08:00] VITALS: BP 99/60; TEMP 97.7; O2SAT 94
[2025-07-09] MEDS ORDERED: Z GUARD REMEDY 4 OZ OINT TP PRN (08:30)
[2025-07-09] MEDS: Z GUARD REMEDY 4 OZ OINT TP SCH (10:52)
[2025-07-09 16:00] VITALS: BP 95/54; TEMP 97.3; O2SAT 95
[2025-07-09 17:45] VITALS: O2SAT 94
[2025-07-09 20:00] VITALS: BP 94/64; TEMP 97.3; O2SAT 96
[2025-07-10 04:00] VITALS: BP 119/70; TEMP 97.3; O2SAT 100
[2025-07-10 07:40] LABS: PLATELET COUNT (AUTO) 488 K/uL (150-450); RED BLOOD CELL COUNT(AUTO) 3.34 MIL/uL (4.0-5.2); RED CELL DISTRIBUTION WIDTH 13.9 % (11.5-15.0); WHITE BLOOD COUNT (AUTO) 5.9 K/uL (4.3-11.0)
[2025-07-10 07:56] LABS: CALCIUM, SERUM 8.7 mg/dL (8.5-10.1); CREATININE 0.7 mg/dL (0.6-1.3); PHOSPHORUS 3.9 mg/dL (2.5-4.9); SODIUM SERUM 144.0 mmol/L (136-145); UREA NITROGEN, BLOOD 8.0 mg/dL (7-18)
[2025-07-10] MEDS ORDERED: CEPH-570 PO (11:07)
[2025-07-10] MEDS ORDERED: AZIT500T PO (11:07)
[2025-07-10 12:25] VITALS: BP 85/50; TEMP 98.1; O2SAT 97
[2025-07-10 20:00] VITALS: BP 106/64; TEMP 98.3; O2SAT 95
[2025-07-10 20:09] LABS: *MYCOPLASMA PNEUMONIAE IgG <100 U/mL (0-99); *MYCOPLASMA PNEUMONIAE IgM 3056 U/mL (0-769)
[2025-07-10 21:11] LABS: LEGIONELLA PNEUMOPHILIA AB Reactive (Non Reactive)
[2025-07-11 04:00] VITALS: BP 100/65; TEMP 98; O2SAT 95
[2025-07-11] MEDS ORDERED: AZIT500T PO (11:24)
[2025-07-11 12:00] VITALS: BP 94/55; TEMP 97.7; O2SAT 96
[2025-07-11] MEDS: AZITHROMYCIN 250 MG TABLET PO SCH (13:28)
[2025-07-11] MEDS: CEPHALEXIN MONOHYDRATE 500 MG CAPSULE PO SCH (16:02)
[2025-07-11 20:00] VITALS: BP 111/72; TEMP 99.3; O2SAT 99
[2025-07-12 04:00] VITALS: BP 104/61; TEMP 97.3; O2SAT 93
[2025-07-12 07:17] LABS: PLATELET COUNT (AUTO) 568 K/uL (150-450); RED BLOOD CELL COUNT(AUTO) 3.58 MIL/uL (4.0-5.2); RED CELL DISTRIBUTION WIDTH 13.9 % (11.5-15.0); WHITE BLOOD COUNT (AUTO) 5.9 K/uL (4.3-11.0)
[2025-07-12 07:27] LABS: CALCIUM, SERUM 9.0 mg/dL (8.5-10.1); CREATININE 0.6 mg/dL (0.6-1.3); PHOSPHORUS 3.9 mg/dL (2.5-4.9); SODIUM SERUM 139.0 mmol/L (136-145); UREA NITROGEN, BLOOD 11.0 mg/dL (7-18)
[2025-07-12 08:00] VITALS: BP 94/56; TEMP 97.5; O2SAT 95
[2025-07-12 16:00] VITALS: BP 96/64; TEMP 98.3; O2SAT 93
[2025-07-12 20:00] VITALS: BP 98/62; TEMP 98.3; O2SAT 93
[2025-07-13 04:00] VITALS: BP 94/54; TEMP 98.2; O2SAT 94
[2025-07-13 08:00] VITALS: BP 106/56; TEMP 98.3; O2SAT 96
[2025-07-13 12:00] VITALS: BP 104/60; TEMP 98.5; O2SAT 99
[2025-07-13 16:00] VITALS: BP 109/58; TEMP 98.1; O2SAT 97
[2025-07-13 20:00] VITALS: BP 94/61; TEMP 98.6; O2SAT 100
[2025-07-14 04:00] VITALS: BP 97/64; TEMP 97.7; O2SAT 97
[2025-07-14 07:31] LABS: PLATELET COUNT (AUTO) 631 K/uL (150-450); RED BLOOD CELL COUNT(AUTO) 3.86 MIL/uL (4.0-5.2); RED CELL DISTRIBUTION WIDTH 13.8 % (11.5-15.0); WHITE BLOOD COUNT (AUTO) 6.0 K/uL (4.3-11.0)
[2025-07-14 08:00] VITALS: BP 93/50; TEMP 98.1; O2SAT 96
[2025-07-14 08:13] LABS: CALCIUM, SERUM 10.0 mg/dL (8.5-10.1); CREATININE 0.8 mg/dL (0.6-1.3); SODIUM SERUM 130.0 mmol/L (136-145); UREA NITROGEN, BLOOD 22.0 mg/dL (7-18)
[2025-07-14] MEDS: IV NS 0.9% 1,000 ML IV SCH (11:02)
[2025-07-14] MEDS: AZITHROMYCIN 250 MG TABLET PO SCH (13:58)
[2025-07-14 16:00] VITALS: BP 103/52; TEMP 98.3; O2SAT 98
[2025-07-14 20:00] VITALS: BP 107/64; TEMP 98; O2SAT 97
[2025-07-15 04:00] VITALS: BP 95/60; TEMP 97.7; O2SAT 95
[2025-07-15 08:00] VITALS: BP 93/54; TEMP 97.5; O2SAT 96
[2025-07-15 08:29] LABS: PLATELET COUNT (AUTO) 599 K/uL (150-450); RED BLOOD CELL COUNT(AUTO) 3.92 MIL/uL (4.0-5.2); RED CELL DISTRIBUTION WIDTH 14.0 % (11.5-15.0); WHITE BLOOD COUNT (AUTO) 5.3 K/uL (4.3-11.0)
[2025-07-15 08:44] LABS: CALCIUM, SERUM 9.3 mg/dL (8.5-10.1); CREATININE 0.8 mg/dL (0.6-1.3); PHOSPHORUS 3.7 mg/dL (2.5-4.9); SODIUM SERUM 138.0 mmol/L (136-145); UREA NITROGEN, BLOOD 18.0 mg/dL (7-18)
== END 2025-07-15 16:24 | DRG 194 ==
LOC: ER 11:19 → TELE1 19:20 → MEDSG1 07-09 09:48
PROVIDERS: ADMIT Nurse Practitioner Acute Care; ATTEND Nurse Practitioner Family
DX: J15.9 Unspecified bacterial pneumonia (principal); E44.0 Moderate protein-calorie malnutrition; E87.1 Hypo-osmolality and hyponatremia; G80.9 Cerebral palsy, unspecified; E88.09 Other disorders of plasma-protein metabolism, not elsewhere classified; N39.0 Urinary tract infection, site not specified; J15.7 Pneumonia due to Mycoplasma pneumoniae; B96.89 Other specified bacterial agents as the cause of diseases classified elsewhere; G93.89 Other specified disorders of brain; D64.9 Anemia, unspecified; G40.909 Epilepsy, unspecified, not intractable, without status epilepticus; F32.A Depression, unspecified; D75.839 Thrombocytosis, unspecified; F41.9 Anxiety disorder, unspecified; R53.1 Weakness; Z86.16 Personal history of COVID-19; G93.0 Cerebral cysts; Z68.21 Body mass index [BMI] 21.0-21.9, adult; Z91.81 History of falling; R78.89 Finding of other specified substances, not normally found in blood; R76.0 Raised antibody titer; Z87.09 Personal history of other diseases of the respiratory system
CPT/HCPCS: 36415; 70450-TC; 71045-TC; 80048-TC; 80053-TC; 81001; 82550-TC; 83605-TC; 83735-TC; 83880; 84100-TC; 84484-TC; 85025-TC; 86713; 86738; 87040-TC; 87086-TC; 87449; 97110-TC; 97116-TC; 97530-TC; 97535-TC; A4223; G0378; J0456; J0696; J1650; J3490; J7030; J7040; J7050; J7060; Q9967